=== PATIENT | female | born 1945 | race Caucasian/White ===

== ENCOUNTER 2017-10-22 08:11 | Inpatient (IN) | payer MEDICARE ==
[~2017-10-22] VITALS: Ht 177.8 cm; Wt 58.7 kg
[~2017-10-22 08:11] MED LIST: ALBU17AE3 IH; CLN.2T PO; RT-ALBUTEROL SULF 2.5 MG/3 ML PRE-MIX VIAL ONE; RT-ALBUTEROL/IPRATROPIUM 3 ML (DUONEB) VIAL ONE
[2017-10-22] MEDS ORDERED: RT-ALBUTEROL SULF 2.5 MG/3 ML PRE-MIX VIAL INH STA (08:14)
[2017-10-22] MEDS ORDERED: NS IV 500 ML 500 ML IV ONE (08:14)
[2017-10-22] MEDS ORDERED: RT-ALBUTEROL/IPRATROPIUM 3 ML (DUONEB) VIAL INH ONE (08:15)
--- OUTSIDE RECORDS SUMMARY | 2017-10-22 08:18 | XMS REPORT | Continuity of Care Document ---
Author Author [facility] Organization [facility] Address Unknown Phone Unavailable Allergies Active Description Code Type Severity Reaction Onset Reported/Identified Relationship to Patient Clinical Status Yes No Known Drug Allergies [id number] Drug Allergy Unknown N/ A 01/13/2014 Medications Problems Procedures Results Encounters ACCT No. Visit Date/Time Discharge Status Pt. Type Provider Facility Loc./Unit Complaint [id number] 01/13/2014 11:25:00 2013 14:00:00 DIS Inpatient [id number] 10/22/2017 08:12:00 ACT Emergency TAYLOR MORGAN, MIRANDA Henry [facility] ER SOA
--- NOTE | 2017-10-22 08:19 | ED Respiratory ---
General Stated Complaint: SOA Source: patient Exam Limitations: no limitations History of Present Illness Time seen by provider: 08:11 Initial Comments Patient presents to ER by private conveyance with chief complaint that for the lower a day now she's had some progressively worsening shortness of air. She's had no cough. She's had no fevers chills nausea vomiting diarrhea chest pain, trauma. She says she has a history of breathing problems and 3 or 4 years ago had to be in the hospital for it. She used to be on an albuterol inhaler but then was switched over to an Advair inhaler to be used as needed. She has not seen a doctor in several years. She said years ago he was told problems her lungs that she inhaled something she's not sure what it was or what that meant. She does not recall being choked on anything or inhaling anything at this time. She denies syncope or palpitations. She does not smoke cigarettes. She denies any history of reactive lung disease, asthma, COPD or ever having problems like this in the past. She has no pain in her calves or history of surgeries or sedentary lifestyle. She does over her own yardwork still. She says about one week ago she was seen by her dentist and put on penicillin for a bad tooth but she's completed that. Allergies and Home Medications Allergies Coded Allergies: No Known Drug Allergies (Unverified , 01/13/14) Home Medications Fluticasone/Salmeterol 1 Each Blst.w.dev, 1 EACH IH for SHORTNESS OF BREATH, ( Reported) Constitutional: No chills, No diaphoresis, No fever EENTM: No hearing loss, No ear pain Respiratory: No cough, No orthopnea, short of breath, No stridor, wheezing Gastrointestinal: No abdominal pain, No constipation, No diarrhea, No nausea, No vomiting Genitourinary: No discharge, No dysuria Musculoskeletal: No back pain, No joint pain Skin: No pruritus, No rash Psychiatric/Neurological: Denies Headache, Denies Numbness, Denies Paresthesia Past Eixqlzs-Yyfssk-Kjlwhl Hx Patient Social History Alcohol Use: Denies Use Recreational Drug Use: No Smoking Status: Never a Smoker Immunizations Up To Date Tetanus Booster (TDap): More than 5yrs HEENT HEENT Disorders: Cataract Loss of Vision: Denies Blood Transfusions Adverse Reaction to a Blood Tr: No Physical Exam Vital Signs Vital Sign - Last 12Hours 10/22/17 08:11 Temp 98.1 Pulse 93 Resp 26 B/P (MAP) 183/114 Pulse Ox 93 O2 Delivery Nasal Cannula O2 Flow Rate 2.00 FiO2 93 Capillary Refill : General Appearance: WD/WN, moderate distress, thin Eyes: Bilateral Eye Normal Inspection, Bilateral Eye PERRL, Bilateral Eye EOMI HEENT: PERRL/EOMI, normal ENT inspection, TMs normal, pharynx normal Neck: non-tender, full range of motion, supple, normal inspection Respiratory: chest non-tender, accessory muscle use, wheezing (bilateral) Cardiovascular: normal peripheral pulses, regular rate, rhythm, no edema Gastrointestinal: normal bowel sounds, non tender, soft Extremities: normal range of motion, normal capillary refill Neurologic/Psychiatric: alert, oriented x 3 Skin: normal color, warm/dry Focused Exam Evaluation Lactate Level Laboratory Tests 10/22/17 08:30: Lactic Acid Level 2.94*H 10/22/17 10:36: Lactic Acid Level 2.78*H Lactic Acid Level Laboratory Tests Test 10/22/17 08:30 10/22/17 10:36 Lactic Acid Level 2.94 MMOL/L (0.50-2.00) *H 2.78 MMOL/L (0.50-2.00) *H Progress/Results/Core Measures Suspected Sepsis SIRS Temperature: Pulse: Respiratory Rate: Laboratory Tests 10/22/17 08:20: White Blood Count 8.9 Blood Pressure / Mean: Laboratory Tests 10/22/17 08:30: Lactic Acid Level 2.94*H 10/22/17 10:36: Lactic Acid Level 2.78*H Laboratory Tests 10/22/17 08:20: Creatinine 0.74, INR Comment 1.0, Platelet Count 240, Total Bilirubin 0.8 Results/Orders Lab Results Laboratory Tests Test 10/22/17 08:20 10/22/17 08:30 10/22/17 08:38 10/22/17 10:36 Range/Units White Blood Count 8.9 4.3-11.0 10^3/uL Red Blood Count 5.66 4.35-5.85 10^6/uL Hemoglobin 16.6 H 11.5-16.0 G/DL Hematocrit 49 35-52 % Mean Corpuscular Volume 86 80-99 FL Mean Corpuscular Hemoglobin 29 25-34 PG Mean Corpuscular Hemoglobin Concent 34 32-36 G/DL Red Cell Distribution Width 13.6 10.0-14.5 % Platelet Count 240 130-400 10^3/uL Mean Platelet Volume 10.8 H 7.4-10.4 FL Neutrophils (%) (Auto) 82 H 42-75 % Lymphocytes (%) (Auto) 11 L 12-44 % Monocytes (%) (Auto) 7 0-12 % Eosinophils (%) (Auto) 0 0-10 % Basophils (%) (Auto) 0 0-10 % Neutrophils # (Auto) 7.3 1.8-7.8 X 10^3 Lymphocytes # (Auto) 0.9 L 1.0-4.0 X 10^3 Monocytes # (Auto) 0.6 0.0-1.0 X 10^3 Eosinophils # (Auto) 0.0 0.0-0.3 10^3/uL Basophils # (Auto) 0.0 0.0-0.1 10^3/uL Prothrombin Time 13.6 12.2-14.7 SEC INR Comment 1.0 0.8-1.4 Activated Partial Thromboplast Time 41 H 24-35 SEC D-Dimer 0.57 H 0.00-0.49 UG/ML Sodium Level 141 135-145 MMOL/L Potassium Level 3.9 3.6-5.0 MMOL/L Chloride Level 102 98-107 MMOL/L Carbon Dioxide Level 23 21-32 MMOL/L Anion Gap 16 H 5-14 MMOL/L Blood Urea Nitrogen 7 7-18 MG/DL Creatinine 0.74 0.60-1.30 MG/DL Estimat Glomerular Filtration Rate > 60 BUN/Creatinine Ratio 9 Glucose Level 150 H 70-105 MG/DL Calcium Level 11.1 H 8.5-10.1 MG/DL Total Bilirubin 0.8 0.1-1.0 MG/DL Aspartate Amino Transf (AST/SGOT) 19 5-34 U/L Alanine Aminotransferase (ALT/SGPT) 8 0-55 U/L Alkaline Phosphatase 117 40-136 U/L Troponin I < 0.30 <0.30 NG/ML Total Protein 8.8 H 6.4-8.2 GM/DL Albumin 4.6 H 3.2-4.5 GM/DL Lactic Acid Level 2.94 *H 2.78 *H 0.50-2.00 MMOL/L Blood Gas Puncture Site RT RADIAL Blood Gas Patient Temperature 98.1 Arterial Blood pH 7.41 7.37-7.43 Arterial Blood Partial Pressure CO2 36 35-45 MMHG Arterial Blood Partial Pressure O2 76 L 79-93 MMHG Arterial Blood HCO3 22 L 23-27 MMOL/L Arterial Blood Total CO2 23.6 21.0-31.0 MMOL/L Arterial Blood Oxygen Saturation 97 94-100 % Arterial Blood Base Excess -1.6 -2.5-2.5 MMOL/L Mehul Test YES-POS Blood Gas Ventilator Setting NO Blood Gas Inspired Oxygen 3 My Orders Orders - MIRANDA VAZQUEZ Fibrin Degradation Products (10/22/17 08:14) Drug Screen Stat (Urine) (10/22/17 08:14) Troponin I (10/22/17 08:14) Chest Pa/Lat (2 View) (10/22/17 08:14) Albuterol Pre-Mix Nebs (Rt) (Proventil (10/22/17 08:14) Albuterol/Ipra Inhalation Soln (Duoneb I (10/22/17 08:15) Saline Lock/Iv-Start (10/22/17 08:14) Ns Iv 500 Ml (Sodium Chloride 0.9%) (10/22/17 08:14) Cbc With Automated Diff (10/22/17 08:14) Comprehensive Metabolic Panel (10/22/17 08:14) Lactic Acid Analyzer (10/22/17 08:14) Blood Culture (10/22/17 08:14) Sputum Culture (10/22/17 08:14) Ua Culture If Indicated (10/22/17 08:14) Protime With Inr (10/22/17 08:14) Partial Thromboplastin Time (10/22/17 08:14) O2 (10/22/17 08:14) Saline Lock/Iv-Start (10/22/17 08:14) Vital Signs Adult Sepsis Patie Q1H (10/22/17 08:14) Remove Rings In Anticipation O (10/22/17 08:14) Ekg Tracing (10/22/17 08:14) Continuous Ekg Monitoring (10/22/17 08:14) Svn Sm Volume Nebulizer Rt-Rfs (10/22/17 08:14) Albuterol Pre-Mix Nebs (Rt) (Proventil (10/22/17 08:09) Albuterol/Ipra Inhalation Soln (Duoneb I (10/22/17 08:09) Arterial Blood Gas (10/22/17 08:38) Saline Lock/Iv-Start (10/22/17 09:20) Ns Iv 1000 Ml (Sodium Chloride 0.9%) (10/22/17 09:20) Ct Angio Chest W (10/22/17 09:23) Iohexol Injection (Omnipaque 350 Mg/Ml 1 (10/22/17 09:30) Sodium Chloride Flush (Catheter Flush Sy (10/22/17 09:30) Methylprednisolone Sod Succ (Solu-Medrol (10/22/17 09:45) Medications Given in ED Current Medications Medications Dose Ordered Sig/Kuldeep Route Start Time Stop Time Status Last Admin Dose Admin Albuterol Sulfate 2.5 mg STK-MED ONCE .ROUTE 10/22/17 08:09 10/22/17 08:19 DC 10/22/17 08:21 2.5 MG Albuterol/ Ipratropium 3 ml STK-MED ONCE .ROUTE 10/22/17 08:09 10/22/17 08:19 DC 10/22/17 08:21 3 ML Iohexol 125 ml ONCE ONCE IV 10/22/17 09:30 10/22/17 09:45 DC 10/22/17 10:07 125 ML Methylprednisolone Sodium Succinate 125 mg ONCE ONCE IVP 10/22/17 09:45 10/22/17 09:46 DC 10/22/17 10:31 125 MG Sodium Chloride 10 ml NEEDED PRN IV 10/22/17 09:30 10/22/17 10:07 10 ML Sodium Chloride 500 ml @ 0 mls/hr Q0M ONCE IV 10/22/17 08:14 10/22/17 08:18 DC 10/22/17 09:15 500 MLS/HR Sodium Chloride 1,000 ml @ 0 mls/hr Q0M ONCE IV 10/22/17 09:20 10/22/17 09:21 DC 10/22/17 10:31 1,000 MLS/HR Vital Signs/I&O Vital Sign - Last 12Hours 10/22/17 10/22/17 10/22/17 08:11 08:11 08:21 Temp 98.1 Pulse 93 Resp 26 B/P (MAP) 183/114 Pulse Ox 93 92 O2 Delivery Nasal Cannula Nasal Cannula Nasal Cannula O2 Flow Rate 2.00 3.00 3.00 FiO2 93 Capillary Refill : Progress Note : Time: 09:34 Progress Note Patient's still having the mild wheezing but says she is breathing much better after the albuterol and DuoNeb treatment. Everything looks like reactive airway disease but she has no history of reactive airway disease and has never smoked. Her d-dimer is modestly elevated so I am concern for a remote possibility of a PE. She has no calf tenderness or other history that would make me think she might be developing a DVT or PE. Certainly malignancy can also be in the differential. We'll get a CT angiogram of the chest. We'll add Solu-Medrol and azithromycin ECG Initial ECG Impression Date: Oct 22, 2017 Initial ECG Impression Time: 09:29 Initial ECG Rate: 89 Initial ECG Rhythm: Normal Sinus Initial ECG Intervals: Normal Initial ECG Impression: Normal, Nonspecific Changes Initial ECG Comparisson: No Previous ECG Available Comment No T-wave elevation or depression. Diagnostic Imaging Diagonstic Imaging: Xray Plain Films/CT/US/NM/MRI: chest Comments [facility]IA [facility]. [place], [place] NAME: CECI VÁZQUEZ [facility] REC#: [id number] PT STATUS: REG ER : 1945 PHYSICIAN: MIRANDA VAZQUEZ MD ADMIT DATE: 10/22/17/ER Draft Date of Exam:10/22/17 CHEST PA/LAT (2 VIEW) INDICATION: Shortness of breath and cough. TECHNIQUE: PA and lateral views of the chest were obtained at 0921 hours. COMPARISON: 01/17/2014. FINDINGS: The heart and mediastinal silhouette are normal in appearance. There is marked hyperinflation, compatible with COPD. There is no focal infiltrate, pneumothorax, or pleural fluid. IMPRESSION: Marked COPD change. No focal infiltrate, pneumothorax, or pleural fluid. Dictated on workstation # [id number] Dict: 10/22/17 0907 Trans: 10/22/17 0956 [id number] Interpreted by: LOY MONTGOMERY MD Electronically signed by: Reviewed: Reviewed by Me Diagonstic Imaging: CT Plain Films/CT/US/NM/MRI: chest (angiogram) Comments NAME: CECI VÁZQUEZ [facility] REC#: [id number] PHYSICIAN: MIRANDA VAZQUEZ MD CC: NELDA GRADY MD; MIRANDA VAZQUEZ Page 2 of 2 RADIOLOGY REPORT [facility] [place], [place] CC: NELDA GRADY MD; MIRANDA VAZQUEZ Page 1 of 2 RADIOLOGY REPORT NAME: CECI VÁZQUEZ [facility] REC#: [id number] PT STATUS: REG ER : 1945 PHYSICIAN: MIRANDA VAZQUEZ MD ADMIT DATE: 10/22/17/ER Signed Date of Exam: 10/22/17 CT ANGIO CHEST W PROCEDURE: CT angiography of the chest with contrast. TECHNIQUE: Multiple contiguous axial images were obtained through the chest after uneventful bolus administration of intravenous contrast. Reconstructed CTA MIP acquisitions were also performed. INDICATION: Shortness of breath. CONTRAST: 125 mL of Omnipaque 350 was administered intravenously. FINDINGS: The pulmonary arteries demonstrate good opacification with no filling defects to suggest pulmonary embolism. There is suggestion of mucus or debris seen within the lower lobe proximal segmental bronchi bilaterally. Borderline sized hilar lymph nodes are noted. No significantly enlarged lymph nodes in the mediastinum or mediastinal masses seen. No axillary lymphadenopathy. The lungs demonstrate suggestion of bibasilar minimal atelectasis including a curvilinear area of consolidation in the right lung base with no significant consolidation or mass. The lungs overall appear to be hyperinflated with no significant emphysematous changes. This could relate to air trapping or chronic bronchitis. The thyroid gland is asymmetric and enlarged with multiple nodules. There are some calcified nodules seen as well in the thyroid gland on both sides. There is slight retrosternal extension. The sections in the upper abdomen appear grossly unremarkable. A tiny hiatal hernia is seen. The osseous structures demonstrate degenerative changes in the mid thoracic spine. IMPRESSION: 1. No PE or aortic dissection. 2. There is debris or mucous seen in lower lobe segmental bronchi bilaterally. 3. Suggestion of subsegmental atelectasis in the lung bases. 4. Enlarged heterogenous thyroid gland with multiple nodules and calcifications. Evaluation with thyroid ultrasound on a nonurgent basis is recommended. Dictated by: Dictated on workstation # [id number] Dict: 10/22/17 1013 Trans: 10/22/17 1129 Interpreted by: NELDA GRADY MD Electronically signed by: NELDA GRADY MD 10/22/17 1129 Reviewed: Reviewed by Me Departure Communication (Admissions) Time/Spoke to Admitting Phy: 11:[address] Jay: Discussed lab imaging findings of COPD exacerbation and is at the [facility] and steroid use. She'll see the patient. Please consult Dr. Rodas. Time/Spoke to Consulting Phy: 11:41 Communication/Consulting Dr. Rodas, pulmonology recommends Solu-Medrol 40 mg every 6 hours and mats protocol. He will see the patient. Impression Impression: Primary Impression: COPD with exacerbation Disposition: ADMITTED INPATIENT Condition: Stable Admissions Decision to Admit Reason: Admit from ER (General) Decision to Admit/Date: Oct 22, 2017 Time/Decision to Admit Time: 11:42 Departure-Patient Inst. Referrals: NO,LOCAL PHYSICIAN (PCP/Family) Primary Care Physician Copy Copies To 1: MINH JAY DO Copies To 2: NAM RODAS DO MIRANDA VAZQUEZ Oct 22, 2017 08:19
[2017-10-22 08:29] LABS: BASOPHILS % (AUTO) 0 % (0-10); EOSINOPHILS % (AUTO) 0 % (0-10); LYMPHOCYTES # (AUTO) 0.9 X 10^3 (1.0-4.0); LYMPHOCYTES % (AUTO) 11 % (12-44); MEAN CORPUSCULAR HEMOGLOBIN 29 PG (25-34); MEAN CORPUSCULAR HGB CONC 34 G/DL (32-36); MEAN CORPUSCULAR VOLUME 86 FL (80-99); MEAN PLATELET VOLUME 10.8 FL (7.4-10.4); MONOCYTES # (AUTO) 0.6 X 10^3 (0.0-1.0); MONOCYTES % (AUTO) 7 % (0-12); NEUTROPHILS # (AUTO) 7.3 X 10^3 (1.8-7.8); NEUTROPHILS % (AUTO) 82 % (42-75); PLATELET COUNT 240 10^3/uL (130-400); RED BLOOD COUNT 5.66 10^6/uL (4.35-5.85); RED CELL DISTRIBUTION WIDTH 13.6 % (10.0-14.5); WHITE BLOOD COUNT 8.9 10^3/uL (4.3-11.0)
[2017-10-22 08:38] LABS: PROTHROMBIN TIME PATIENT 13.6 SEC (12.2-14.7)
[2017-10-22 08:45] LABS: ABG BASE EXCESS -1.6 MMOL/L (-2.5-2.5); ABG HCO3 22 MMOL/L (23-27); ABG OXYGEN SATURATION 97 % (94-100); ABG PCO2 36 MMHG (35-45); ABG PH 7.41 (7.37-7.43); ABG PO2 76 MMHG (79-93); ABG TCO2 23.6 MMOL/L (21.0-31.0)
[2017-10-22 08:46] LABS: ALLENS TEST YES-POS; PATIENT TEMP 98.1
[2017-10-22] MEDS ORDERED: FLUT1DIS28 IH (08:46)
[2017-10-22 08:47] LABS: ALANINE AMINOTRANSFERASE 8 U/L (0-55); ALBUMIN 4.6 GM/DL (3.2-4.5); ANION GAP 16 MMOL/L (5-14); ASPARTATE AMINO TRANSFERASE 19 U/L (5-34); BILIRUBIN,TOTAL 0.8 MG/DL (0.1-1.0); BLOOD UREA NITROGEN 7 MG/DL (7-18); BUN/CREATININE RATIO 9; CALCIUM 11.1 MG/DL (8.5-10.1); CARBON DIOXIDE 23 MMOL/L (21-32); CHLORIDE 102 MMOL/L (98-107); CREATININE SERUM 0.74 MG/DL (0.60-1.30); GFR ESTIMATED > 60; GLUCOSE 150 MG/DL (70-105); POTASSIUM 3.9 MMOL/L (3.6-5.0); SODIUM 141 MMOL/L (135-145); TOTAL PROTEIN 8.8 GM/DL (6.4-8.2)
[2017-10-22 08:52] LABS: TROPONIN I < 0.30 NG/ML (<0.30)
[2017-10-22] MEDS ORDERED: NS IV 1000 ML 1,000 ML IV ONE (09:20)
[2017-10-22] MEDS ORDERED: IOHEXOL 350 MG/ML 150 ML (OMNIPAQUE 350) VIAL IV ONE (09:30)
[2017-10-22] MEDS ORDERED: CATHETER FLUSH 10 ML SYR IV PRN ×2 (09:30→13:00)
[2017-10-22] MEDS ORDERED: methylPREDNISolone 125 MG (Solu-MEDROL) VIAL IVP ONE (09:45)
--- NOTE | 2017-10-22 09:57 | Diagnostic Imaging Report ---
INDICATION: Shortness of breath and cough. TECHNIQUE: PA and lateral views of the chest were obtained at 0921 hours. COMPARISON: 01/17/2014. FINDINGS: The heart and mediastinal silhouette are normal in appearance. There is marked hyperinflation, compatible with COPD. There is no focal infiltrate, pneumothorax, or pleural fluid. IMPRESSION: Marked COPD change. No focal infiltrate, pneumothorax, or pleural fluid. Dictated by: Dictated on workstation # [id number]
--- NOTE | 2017-10-22 10:57 | Diagnostic Imaging Report ---
PROCEDURE: CT angiography of the chest with contrast. TECHNIQUE: Multiple contiguous axial images were obtained through the chest after uneventful bolus administration of intravenous contrast. Reconstructed CTA MIP acquisitions were also performed. INDICATION: Shortness of breath. CONTRAST: 125 mL of Omnipaque 350 was administered intravenously. FINDINGS: The pulmonary arteries demonstrate good opacification with no filling defects to suggest pulmonary embolism. There is suggestion of mucus or debris seen within the lower lobe proximal segmental bronchi bilaterally. Borderline sized hilar lymph nodes are noted. No significantly enlarged lymph nodes in the mediastinum or mediastinal masses seen. No axillary lymphadenopathy. The lungs demonstrate suggestion of bibasilar minimal atelectasis including a curvilinear area of consolidation in the right lung base with no significant consolidation or mass. The lungs overall appear to be hyperinflated with no significant emphysematous changes. This could relate to air trapping or chronic bronchitis. The thyroid gland is asymmetric and enlarged with multiple nodules. There are some calcified nodules seen as well in the thyroid gland on both sides. There is slight retrosternal extension. The sections in the upper abdomen appear grossly unremarkable. A tiny hiatal hernia is seen. The osseous structures demonstrate degenerative changes in the mid thoracic spine. IMPRESSION: 1. No PE or aortic dissection. 2. There is debris or mucous seen in lower lobe segmental bronchi bilaterally. 3. Suggestion of subsegmental atelectasis in the lung bases. 4. Enlarged heterogenous thyroid gland with multiple nodules and calcifications. Evaluation with thyroid ultrasound on a nonurgent basis is recommended. Dictated by: Dictated on workstation # [id number]
[2017-10-22 12:00] VITALS: BP 182/99
[2017-10-22] MEDS ORDERED: ONDANSETRON 4 MG/2 ML (SDV) Z0FRAN IV PRN (13:00)
[2017-10-22] MEDS ORDERED: ACET-2267 PO (13:17)
--- NOTE | 2017-10-22 13:33 | History & Physical-Hospitalist ---
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 Hardin as her primary care provider that has a long-standing history of mild persistent asthma that presented to the emergency room with shortness of breath and wheezing. She reports that she had gotten worse and delayed coming in was taking her Advair but began to feel worse and presented to the emergency room found to have exacerbation of asthma with hypoxia of PaO2 of 72 in need of hospitalization. Dr. Rodas was consulted IV steroids were initiated along with nebulizer treatments and patient improved from the time of admission to the time she was assessed at 1300 hours on day of admit. Source: patient Exam Limitations: no limitations Date Seen 10/22/17 Time Seen by Provider: 13:00 Attending Physician Charlette Butts DO PCP No,Local Physician Referring Physician Date of Admission Oct 22, 2017 at 10:50 Home Medications & Allergies Home Medications Reviewed patient Home Medication Reconciliation Form Allergies Allergies Coded Allergies No Known Drug Allergies (Tvhzzwnewl92/29/17) Past Cskxubk-Flodtk-Tsfmyk Hx Patient Social History Marrital Status: single Employed/Student: retired Alcohol Use: Denies Use Recreational Drug Use: No Smoking Status: Never a Smoker Recent Foreign Travel: No Contact w/other who traveled: No Recent Hopitalizations: No Recent Infectious Disease Expo: No Immunizations Up To Date Tetanus Booster (TDap): More than 5yrs Surgeries Yes Respiratory Yes Asthma Cardiovascular No Neurological No Gastrointestinal No Musculoskeletal No Endocrine History of Endocrine Disorders: No HEENT HEENT Disorders: Cataract Loss of Vision: Denies Cancer No Psychosocial History of Psychiatric Problem: No Integumentary History of Skin or Integumenta: No Blood Transfusions History of Blood Disorders: No Adverse Reaction to a Blood Tr: No Review of Systems Constitutional: see HPI EENTM: no symptoms reported Respiratory: dyspnea on exertion, wheezing Cardiovascular: no symptoms reported Gastrointestinal: no symptoms reported Genitourinary: no symptoms reported Musculoskeletal: no symptoms reported Skin: no symptoms reported Psychiatric/Neurological: No Symptoms Reported All Other Systems Reviewed Negative Unless Noted: Yes Physical Exam Physical Exam Vital Signs Vital Sign - Last 12Hours 10/22/17 08:11 Temp 98.1 Pulse 93 Resp 26 B/P (MAP) 183/114 Pulse Ox 93 O2 Delivery Nasal Cannula O2 Flow Rate 2.00 FiO2 93 Capillary Refill : Less Than 3 Seconds General Appearance: No Apparent Distress, WD/WN, Chronically ill, Thin Eyes: Bilateral Eye Normal Inspection, Bilateral Eye PERRL HEENT: PERRL/EOMI, Normal ENT Inspection, Pharynx Normal Neck: Full Range of Motion, Normal Inspection, Non Tender, Supple, Carotid Bruit Respiratory: Chest Non Tender, No Accessory Muscle Use, No Respiratory Distress , Crackles, Decreased Breath Sounds, Wheezing Cardiovascular: Regular Rate, Rhythm, No Edema, No Gallop, No JVD, No Murmur, Normal Peripheral Pulses Gastrointestinal: Normal Bowel Sounds, No Organomegaly, No Pulsatile Mass, Non Tender, Soft Back: Normal Inspection, No CVA Tenderness, No Vertebral Tenderness Extremity: Normal Capillary Refill, Normal Inspection, Normal Range of Motion, Non Tender, No Calf Tenderness, No Pedal Edema Neurologic/Psychiatric: Alert, Oriented x3, No Motor/Sensory Deficits, Normal Mood/Affect Skin: Normal Color, Warm/Dry Lymphatic: No Adenopathy Results Results/Procedures Lab Laboratory Tests 10/22/17 08:20 Assessment/Plan Admission Diagnosis Assessment: Acute exacerbation of asthma with hypoxia Assessment and Plan Plan: IV steroids Nebulizers Advair Pulmonology consultation [facility] CHARLETTE BUTTS DO Oct 22, 2017 13:33
[2017-10-22] MEDS ORDERED: INFLUENZA TRIvalent 2017-2018 0.5 ML/45 MCG SYR IM ONE (14:00)
[2017-10-22] MEDS: CATHETER FLUSH 10 ML SYR IV SCH ×2 (14:14→21:47)
[2017-10-22] MEDS ORDERED: ACETAMINOPHEN 500 MG TAB (TYLENOL) PO PRN (14:15)
[2017-10-22 14:50] VITALS: BP 182/99
[2017-10-22] MEDS ORDERED: RT-ALBUTEROL SULF 2.5 MG/3 ML PRE-MIX VIAL IH PRN (15:00)
[2017-10-22] MEDS ORDERED: RT-ALBUTEROL SULF 2.5 MG/3 ML PRE-MIX VIAL IH SCH (15:00)
[2017-10-22 16:00] VITALS: BP 137/72
[2017-10-22] MEDS: methylPREDNISolone 40 MG/ML (Solu-MEDROL) VIAL IV SCH ×2 (17:30→22:30)
[2017-10-22 17:44] LABS: BILIRUBIN,URINE NEGATIVE (NEGATIVE); KETONES,URINE NEGATIVE (NEGATIVE); LEUKOCYTE ESTERASE ,URINE NEGATIVE (NEGATIVE); NITRITE,URINE NEGATIVE (NEGATIVE); PH,URINE 5 (5-9); PROTEIN,URINE 3+ (NEGATIVE); UROBILINOGEN,URINE NORMAL (NORMAL)
[2017-10-22 17:51] LABS: WBC,URINE RARE /HPF
[2017-10-22 17:52] LABS: SQUAMOUS EPITHELIAL CELL,UR RARE /HPF
[2017-10-22] MEDS: RT-ALBUTEROL SULF 2.5 MG/3 ML PRE-MIX VIAL IH SCH (19:08)
[2017-10-22] MEDS ORDERED: RT-ADVAIR HFA 45/21 MCG PER PUFF IH PRN (20:00)
[2017-10-22 20:31] VITALS: BP 162/92
[2017-10-23] VITALS (8 sets, daily range): BP systolic 111–176; BP diastolic 76–85
[2017-10-23] MEDS: CATHETER FLUSH 10 ML SYR IV SCH ×2 (05:05→14:36)
[2017-10-23] MEDS: methylPREDNISolone 40 MG/ML (Solu-MEDROL) VIAL IV SCH ×2 (05:05→09:58)
[2017-10-23] MEDS: RT-ALBUTEROL SULF 2.5 MG/3 ML PRE-MIX VIAL IH SCH ×3 (07:33→14:33)
--- NOTE | 2017-10-23 08:42 | Pulmonary Consultation ---
History of Present Illness History of Present Illness Date of Consultation 10/23/17 08:37 Time Seen by Provider: 08:37 Date of Admission History of Present Illness 72yo presented to ED secondary to worsening SOB. Denies hx of lung disease and also denies wheezing, coughing, fever, NS, Chills. Pt denies ever smoking. SOB is now improved. CT scan showed atelectasis and chronic changes. 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 No productive cough. I am consulted for pulmonary management. Allergies and Home Medications Allergies Coded Allergies: No Known Drug Allergies (Unverified , 10/22/17) Home Medications Acetaminophen 500 Mg Tablet, 500 MG PO Q4H PRN for PAIN-MILD, (Reported) Fluticasone/Salmeterol 1 Each Blst.w.dev, 1 PUFF IH BID PRN for SHORTNESS OF BREATH, (Reported) Past [id number] Hx Patient Social History Alcohol Use: Denies Use Recreational Drug Use: No Smoking Status: Never a Smoker Recent Foreign Travel: No Contact w/Someone Who Travel: No Recent Infectious Disease Expo: No Recent Hopitalizations: No Physical Abuse: No Sexual Abuse: No Immunizations Up To Date Tetanus Booster (TDap): More than 5yrs Seasonal Allergies Seasonal Allergies: Yes Surgeries History of Surgeries: Yes Respiratory History of Respiratory Disorde: No Cardiovascular History of Cardiac Disorders: No Neurological History of Neurological Disord: No Reproductive System HIV/AIDS: No Genitourinary History of Genitourinary Disor: No Gastrointestinal History of Gastrointestinal Di: No Musculoskeletal History of Musculoskeletal Dis: No Endocrine History of Endocrine Disorders: No HEENT HEENT Disorders: Cataract Loss of Vision: Denies Cancer History of Cancer: No Psychosocial History of Psychiatric Problem: No Suicide Risk Score: 0 Integumentary History of Skin or Integumenta: No Blood Transfusions History of Blood Disorders: No Adverse Reaction to a Blood Tr: No Family Medical History Family Medial History: FHx: diabetes mellitus 09 SISTER Review of Systems Time Seen by Provider: 11:21 Constitutional: Weakness, Malaise, No: Fever, Chills, Sweats, Other Eyes: No: Pain, Vision change, Conjunctivae inflammation, Eyelid inflammation, Other, Redness ENT: Nose discharge, Nose congestion, No: Ear pain, Ear discharge, Nose pain, Mouth pain, Mouth swelling, Throat pain, Throat swelling, Other Respiratory: Cough, Dry, Shortness of breath, SOB with excertion Cardiovascular: No: Chest Pain, Palpitations, Orthopnea, Paroxysmal Noc. Dyspnea, Edema, Lt Headedness, Other Gastrointestinal: No: Nausea, Vomiting, Abdominal Pain, Diarrhea, Constipation , Melena, Hematochezia, Other Exam Exam Vital Signs Date Time Temp Pulse Resp B/P (MAP) Pulse Ox O2 Delivery O2 Flow Rate FiO2 10/23/17 08:26 98.6 87 18 176/79 93 Room Air 10/23/17 08:09 98.6 62 14 111/76 98 Room Air 10/23/17 07:35 95 Nasal Cannula 2.00 10/23/17 06:48 98.3 76 16 173/77 96 Nasal Cannula 2.00 10/23/17 05:08 98.3 76 18 173/77 96 Nasal Cannula 2.00 10/23/17 05:04 98.3 76 18 173/77 96 Nasal Cannula 2.00 10/23/17 04:10 98.3 76 16 173/77 96 Nasal Cannula 2.00 10/23/17 00:10 98.1 75 18 159/80 94 Nasal Cannula 2.00 10/22/17 21:00 Room Air 10/22/17 20:31 97.8 94 20 162/92 94 Nasal Cannula 10/22/17 19:09 93 Nasal Cannula 2.00 10/22/17 16:00 98.9 95 22 137/72 95 Nasal Cannula 10/22/17 14:50 89 94 28 10/22/17 13:38 Nasal Cannula 2.00 10/22/17 12:00 98.2 89 20 182/99 Nasal Cannula 10/22/17 11:54 84 18 94 Nasal Cannula 3.00 General Appearance: No Apparent Distress, WD/WN, Anxious HEENT: PERRL/EOMI, Pharynx Normal Neck: Full Range of Motion, Normal Inspection, Non Tender, Supple Respiratory: No Accessory Muscle Use, No Respiratory Distress, Decreased Breath Sounds Cardiovascular: Regular Rate, Rhythm, No Edema, No Gallop Capillary Refill: Less Than 3 Seconds Gastrointestinal: normal bowel sounds, non tender, soft Extremity: Normal Capillary Refill, Normal Inspection Neurologic/Psychiatric: Alert, Oriented x3 Skin: Normal Color, Warm/Dry Lymphatic: No Adenopathy Results Lab Laboratory Tests 10/22/17 08:20 Assessment/Plan Assessment/Plan Acute bronchitis r/o asthma -PT was hypoxic will no oxygen desaturation testing -Solumedrol - change to prednisone taper. -Out pt testing -SVNs Chronic atelectasis possibly secondary to body habitus 254 Clinical Quality Measures DVT/VTE Risk/Contraindication: Risk Factor Score Per Nursin RFS Level Per Nursing on Admit: 3=High NAM ISLAS DO Oct 23, 2017 08:42
[2017-10-23] MEDS ORDERED: amLODIPine 5 MG (NORVASC) TAB PO NR (09:45)
--- NOTE | 2017-10-23 11:14 | Discharge Summary-Hospitalist ---
Diagnosis/Chief Complaint Date of Admission Oct 22, 2017 at 10:50 Date of Discharge Admission Diagnosis Acute asthma attack Elevated lactic acid of uncertain significance Discharge Diagnosis Acute asthma attack Elevated lactic acid of uncertain significance Discharge Summary Discharge Physical Examination Allergies: Coded Allergies: No Known Drug Allergies (Unverified , 10/22/17) Vitals & I&Os Vital Signs Date Time Temp Pulse Resp B/P (MAP) Pulse Ox O2 Delivery O2 Flow Rate FiO2 10/23/17 11:12 92 21.00 10/23/17 10:54 Nasal Cannula 10/23/17 08:26 98.6 87 18 176/79 10/22/17 14:50 28 Hospital Course Notes from 10/23/17 Chart Review: No fever Vitals stable except BP elevated, will begin Norvasc UDS negative Dr. Rodas Review: Pt is okay to DC today but needs a home O2 eval. Dr. Rodas would like to see the pt in an out-pt setting for a PFT and pt may need Alpha-1 testing. Pt is wheezing Patient Interview: Pt confirms ambulating and states she went to get a soda Physical exam stable. Lungs sound much better. Pt states she coughed up some mucus twice this am. Pt states she does not want home O2. Pt was informed that I would like to have her evaluated though. Pt is okay with DC today, but would like to stay until about 1900. Pt confirms pharmacy as [facility]. Pt states that she will shower when she goes home. Pt states she does Advair because this works best for her and denies breathing treatments at home. Pt was advised to take her Advair once a day to help prevent asthma attacks. Pt seems worried about her lactic acid. Pt was assured that she is doing well today Pt states that Dr. Rodas wants to see her, and she is unsure of this, she does not think it is necessary. I informed the pt that we should try a PFT, out-pt, when she is up to it Pt states she would like to see me as her PCP. AFVSS, Pleasant, improved Improved breath sounds all nettles Plan: Home O2 eval Norvasc Advair and steroids to [facility] Follow up with me Follow up with Dr. Rodas Scribed by Agnieszka Awad under direct supervision of Dr. Charlette Jay. Labs (last 24 hrs) Laboratory Tests 10/22/17 16:30: Urine Color YELLOW, Urine Clarity CLEAR, Urine pH 5, Urine Specific [place] 1.015L, Urine Protein 3+H, Urine Glucose (UA) 2+H, Urine Ketones NEGATIVE, Urine Nitrite NEGATIVE, Urine Bilirubin NEGATIVE, Urine Urobilinogen NORMAL, Urine Leukocyte Esterase NEGATIVE, Urine RBC (Auto) 3+H, Urine RBC 0-2, Urine WBC RARE, Urine Squamous Epithelial Cells RARE, Urine Crystals NONE, Urine Bacteria NEGATIVE, Urine Casts NONE, Urine Mucus NEGATIVE, Urine Culture Indicated NO, Urine Opiates Screen NEGATIVE, Urine Oxycodone Screen NEGATIVE, Urine Methadone Screen NEGATIVE, Urine Propoxyphene Screen NEGATIVE, Urine Barbiturates Screen NEGATIVE, Ur Tricyclic Antidepressants Screen NEGATIVE, Urine Phencyclidine Screen NEGATIVE, Urine Amphetamines Screen NEGATIVE, Urine Methamphetamines Screen NEGATIVE, Urine Benzodiazepines Screen NEGATIVE, Urine Cocaine Screen NEGATIVE, Urine Cannabinoids Screen NEGATIVE Discharge Home Medications: Active Scripts Active Prednisone 10 Mg Tab.ds.pk 10 Mg PO DAILY Take 6 tabs(60mg)daily,decrease by 1 tab(10MG)daily. Advair 100-50 Diskus (Fluticasone/Salmeterol) 1 Each Blst.w.dev 1 Puff IH BID PRN Reported Tylenol Extra Strength (Acetaminophen) 500 Mg Tablet 500 Mg PO Q4H PRN Instructions to patient/family Please see electronic discharge instructions given to patient. Clinical Quality Measures DVT/VTE Risk/Contraindication: Risk Factor Score Per Nursin RFS Level Per Nursing on Admit: 3=High CHARLETTE JAY DO Oct 23, 2017 11:14
[2017-10-23] MEDS ORDERED: PRED10TA22 PO (11:29)
[2017-10-23] MEDS ORDERED: FLUT1DIS28 IH (11:29)
[2017-10-24] MEDS ORDERED: predniSONE 10 MG TAB PO SCH (09:00)
== END 2017-10-23 17:00 | disposition home or self-care (01) | DRG 202 ==
LOC: EDUNIT# 08:11 → ER 08:12 → 4TH 10:50
PROVIDERS: ADMIT Internal Medicine; ATTEND Internal Medicine
DX: J45.901 Unspecified asthma with (acute) exacerbation (principal); J98.11 Atelectasis; R09.02 Hypoxemia; J20.9 Acute bronchitis, unspecified
CPT/HCPCS: 36415; 71020; 71275; 80053; 80306; 81000; 82805; 83605; 84484; 85025; 85379; 85610; 85730; 87040; 93005; 94640; 94760; 94761; 94762